=== PATIENT | male | born 1965 | race Caucasian/White ===

== ENCOUNTER 2017-07-14 10:23 | Observation (INO) ==
--- NOTE | 2017-07-14 10:31 | Emergency Department Note ---
Disposition Clinical Impression: ACS (acute coronary syndrome) Disposition: Admitted As Inpatient Condition: Fair General Adult HPI - General Chief complaint: ED Nausea/Vomiting/Diarrhea Stated complaint: Chest Pain Time Seen by Provider: 07/14/17 10:28 Source: patient Mode of arrival: ambulatory Limitations: no limitations Nursing Notes Reviewed: Yes Vital Signs Reviewed: Yes - History of Present Illness HPI Narrative: 51-year-old male with a history of ACS status post stent as well as hypertension presents for evaluation of nausea vomiting chest pain. Patient states symptom onset was this morning. Patient noted some left-sided retrosternal chest pain with numbness of his left hand. Patient subsequently had several bouts of nonbloody nonbilious emesis. Patient denies any dyspnea. Denies any fevers. No cough. States his was recently sick with the flu. Patient notes some lower abdominal discomfort. No aggravating or alleviating symptoms related the pain. Pain Scale: 5 - Related Data Home Medications Medication Instructions Recorded Confirmed Albuterol Sulfate [Proair Hfa] 2 puff IH Q4H PRN 08/27/15 07/14/17 Aspirin 81 mg PO DAILY 08/27/15 07/14/17 Docusate [Colace] 100 mg PO DAILY 08/27/15 07/14/17 Fluticasone Propionate Nasal 1 spr NS DAILY 08/27/15 07/14/17 [Flonase] Loratadine [Claritin] 10 mg PO DAILY 08/27/15 07/14/17 Acetaminophen with Codeine 1 tab PO QID PRN 07/14/17 07/14/17 [Acetaminophen-Cod #3 Tablet] Icosapent Ethyl [Vascepa] 1 cap PO QID 07/14/17 07/14/17 Rosuvastatin Calcium [Rosuvastatin 20 mg PO DAILY 07/14/17 07/14/17 Calcium] diazePAM [Valium] 5 mg PO BID 07/14/17 07/14/17 traZODone [TraZODone] 50 mg PO HS 07/14/17 07/14/17 Previous Rx's Medication Instructions Recorded Isosorbide MONOnitrate (24 HR) 30 mg PO DAILY #30 tab.er.24h 08/28/15 [Imdur] Metoprolol XL (24 HR) Succ [Toprol 25 mg PO DAILY #30 tab.er.24h 08/28/15 Xl] Nitroglycerin 0.4 mg SL Q5MIN PRN #30 tab.subl 08/28/15 Acetaminophen [Tylenol] 650 mg PO Q6HR PRN #40 tablet MDD 10/30/15 3250 Allergies Allergy/AdvReac Type Severity Reaction Status Date / Time nicotine [From Nicoderm CQ] AdvReac Itching Verified 10/10/15 21:52 Penicillins AdvReac killed Verified 10/10/15 21:52 good bacteria Varenicline [From Chantix] AdvReac had all Verified 10/10/15 21:52 side effects of the medicine All systems ED: reviewed and negative except as stated. Constitutional: Reports: as per HPI. Denies: fever Eyes: Reports: as per HPI ENT ED: Reports: as per HPI Cardiovascular: Reports: as per HPI, chest pain Respiratory: Reports: as per HPI. Denies: cough, dyspnea, sputum production Gastrointestinal: Reports: as per HPI, abdominal pain, nausea, vomiting Genitourinary: Reports: as per HPI Musculoskeletal: Reports: as per HPI Integumentary: Reports: as per HPI Neurological: Reports: as per HPI Psychiatric: Reports: as per HPI Past Medical History - Past Medical History Medical history: Reports: arthritis, COPD, coronary artery disease, fibromyalgia , GERD, hyperlipidemia, hypertension, other Psychiatric history: Reports: anxiety, depression - Social History Smoking Status: Current every day smoker Smokeless Tobacco Status: No Alcohol use: Reports: none Drug use: Reports: none Physical Exam - General Limitations: no limitations General appearance: alert, in no apparent distress - Head Head exam: atraumatic, normocephalic, normal inspection - Eye Eye exam: Present: normal appearance, EOMI - ENT ENT exam: normal exam - Neck Neck exam: Present: normal inspection, trachea midline - Chest Chest inspection: Present: normal inspection, symmetric chest wall rise - Respiratory Respiratory exam: Present: normal lung sounds bilaterally. Absent: respiratory distress - Cardiovascular Cardiovascular exam: Present: regular rate, normal rhythm. Absent: systolic murmur - Abdominal Exam Abdominal exam: Present: soft, Non-Tender. Absent: guarding, rebound - Extremities Exam Extremities exam: Present: normal inspection - Expanded Lower Extremity Exam Neurovascular/Tendon exam: Present: normal capillary refill - Back Exam Back exam: Present: normal inspection - Neurological Exam Neurological exam: Present: alert, oriented X3 - Skin Skin exam: Present: warm, dry, intact, normal color Course Vital Signs Temperature 99.2 F 07/14/17 10:25 Pulse Rate 98 07/14/17 10:25 Respiratory Rate 18 07/14/17 10:25 Blood Pressure 133/94 07/14/17 10:25 O2 Sat by Pulse Oximetry 97 07/14/17 10:25 Temperature 99.6 F 07/14/17 15:54 Pulse Rate 104 07/14/17 15:54 Respiratory Rate 16 07/14/17 15:54 Blood Pressure 119/67 07/14/17 15:54 O2 Sat by Pulse Oximetry 96 07/14/17 15:54 Oxygen Delivery Oxygen Delivery Room Air Medical Decision Making - MDM Narrative Medical decision making narrative: 51-year-old male patient for evaluation of chest pain as well as nausea vomiting diaphoresis. Patient states that symptom onset was this morning. Patient had a negative troponin however given the concerning history and patient had no history of recent cardiac evaluation patient would likely need inpatient evaluation with stress testing and repeated troponin. Patient's pain was addressed with aspirin as well as nitroglycerin in the ER. Patient will be admitted for further evaluation. This is less likely a pulmonary embolism given the patient's history and physical exam. - Lab Data Lab results reviewed: Yes I reviewed the patient's lab results. Result diagrams: 07/14/17 10:46 07/14/17 10:46 Lab Results 07/14/17 07/14/17 07/14/17 Range/Units 10:46 10:46 10:46 WBC 13.8 H (4.3-11.1) K/mcL RBC 5.59 H (4.19-5.50) M/mcL Hgb 16.9 (12.9-16.9) g/dL Hct 49.7 (37.5-50.1) % MCV 88.9 (83.0-100.0) fL MCH 30.2 (28.0-33.3) pg MCHC 34.0 (31.6-35.5) g/dL RDW 14.3 (11.5-14.5) % Plt Count 255 (140-400) K/mcL MPV 10.1 (9.4-12.4) fL Immature Gran % 0.3 (0-4) % Seg Neutrophils % 90.9 % Lymphocytes % 2.7 % Monocytes % 5.3 % Eosinophils % 0.5 % Basophils % 0.3 % Neutrophils # 12.6 H (1.6-8.9) K/mcL Lymphocytes # 0.4 L (0.6-4.6) K/mcL Monocytes # 0.7 (0.0-1.3) K/mcL Eosinophils # 0.1 (0.0-0.6) K/mcL Basophils # 0.0 (0.0-0.2) K/mcL Sodium 140 (136-145) mEq/L Potassium 4.7 (3.5-5.1) mEq/L Chloride 108 H (98-107) mEq/L Carbon Dioxide 27 (23-29) mEq/L BUN 19 (6-20) mg/dL Creatinine 1.09 (0.70-1.30) mg/dL Est GFR ( Amer) > 60 (> 60) Est GFR (Non-Af Amer) > 60 (> 60) BUN/Creatinine Ratio 17 (6-26) Glucose 132 H (70-105) mg/dL Calculated Osmolality 294 (280-300) Calcium 9.2 (8.6-10.3) mg/dL Total Bilirubin 0.6 (0.3-1.0) mg/dL AST 36 (13-39) Units/L ALT 18 (7-52) Units/L Alkaline Phosphatase 105 H (34-104) Units/L Troponin I < 0.03 (< 0.04) ng/mL Serum Total Protein 7.8 (6.4-8.9) g/dL Albumin 4.4 (3.5-5.7) g/dL Globulin 3.4 (2.4-3.5) g/dL Albumin/Globulin Ratio 1.3 (1.1-2.2) - Radiology Data Radiology results reviewed: Yes I reviewed the patient's radiology results. Chest X-Ray 07/14/17 10:37 IMPRESSION: No acute findings. D/ / Adeel Burrows / Adeel Burrows Interpreting Provider: Adeel Burrows - EKG Data EKG #1 EKG attestation: Yes I reviewed and interpreted this EKG. EKG shows normal: sinus rhythm Rate: normal Rhythm: NSR [place]/QRS: normal Q waves: III, v1 QRS morphology: poor R-wave progression Interpretation: no acute changes, unchanged when compared to prior tracing (date ) Shorty - Shorty Situation: Demographics Background: Presenting Complaint Assessment: Vital Signs, Course and respsone to treatment Recommendation: Barrier(s) to disposition, Recommendation based on pending studies, treatments, or consults Shorty Report Given to: Dr. Winter Oro Repor Time: 13:07 Attestation Statement - Attestation Attestation: I examined this patient and my medical decision-making was reviewed with the Resident Physician. I agree with the documented findings, disposition and treatment plan as described. Heart Score - Score History: Moderately Suspicious EKG: Non Specific repolarisation Disturbance Age: 45-65 Risk Factors: 1-2 risk factors Troponin: Less than normal limit HEART Score Total: 4
[2017-07-14] MEDS ORDERED: Nitroglycerin 0.4 MG TAB.SUBL SL ONE (10:37)
[2017-07-14] MEDS ORDERED: Aspirin 81 MG TAB.CHEW PO ONE (10:37)
[2017-07-14] MEDS ORDERED: Ondansetron 4 MG/2 ML VIAL IVP ONE (10:39)
[2017-07-14 11:03] LABS: Albumin 4.4 g/dL (3.5-5.7); Bilirubin,Total 0.6 mg/dL (0.3-1.0); Calcium 9.2 mg/dL (8.6-10.3); Carbon Dioxide 27 mEq/L (23-29); Chloride 108 mEq/L (98-107); Potassium 4.7 mEq/L (3.5-5.1); Sodium 140 mEq/L (136-145)
[2017-07-14 11:06] LABS: Basophils % 0.3 %; Eosinophils # 0.1 K/mcL (0.0-0.6); Eosinophils % 0.5 %; Hematocrit 49.7 % (37.5-50.1); Hemoglobin 16.9 g/dL (12.9-16.9); Immature Granulocytes % 0.3 % (0-4); Lymphocytes # 0.4 K/mcL (0.6-4.6); Lymphocytes % 2.7 %; Mean Corpuscular Hemoglobin 30.2 pg (28.0-33.3); Mean Corpuscular Volume 88.9 fL (83.0-100.0); Mean Platelet Volume 10.1 fL (9.4-12.4); Monocytes # 0.7 K/mcL (0.0-1.3); Monocytes % 5.3 %; Neutrophils # 12.6 K/mcL (1.6-8.9); Platelet Count 255 K/mcL (140-400); Red Blood Count 5.59 M/mcL (4.19-5.50); Red Cell Distribution Width 14.3 % (11.5-14.5); Segmented Neutrophils % 90.9 %
[2017-07-14 11:09] LABS: Alanine Aminotransferase 18 Units/L (7-52); Albumin/Globulin Ratio 1.3 (1.1-2.2); Alkaline Phosphatase 105 Units/L (34-104); Aspartate Amino Transferase 36 Units/L (13-39); BUN/Creatinine Ratio 17 (6-26); Blood Urea Nitrogen 19 mg/dL (6-20); Globulin 3.4 g/dL (2.4-3.5); Glucose 132 mg/dL (70-105); Osmolality,Calculated 294 (280-300); Total Protein 7.8 g/dL (6.4-8.9); eGFR For African Americans > 60 (> 60); eGFR For Non-African Americans > 60 (> 60)
[2017-07-14] MEDS ORDERED: Acetaminophen 325 MG TABLET PO PRN (13:44)
[2017-07-14] MEDS ORDERED: Naloxone 0.4 MG/ML INJ IVP PRN (13:44)
[2017-07-14] MEDS ORDERED: Ondansetron 4 MG/2 ML VIAL IVP PRN (13:44)
[2017-07-14] MEDS ORDERED: Ipratropium/Albuterol Neb 3 ML IH PRN (13:47)
--- NOTE | 2017-07-14 13:52 | Internal Med History&Physical ---
Date of Encounter: 07/14/17 Time of Encounter: 13:49 Assessment and Plan (1) Chest pain Current visit: Yes Status: Acute Chest pain with history of CAD and stent Continue aspirin, metoprolol, nitroglycerin as needed, morphine as needed, statin Telemetry, troponins Order stress test and an echocardiogram, consider cardiology consult if abnormal findings Omeprazole for GI prophylaxis and Lovenox for DVT prophylaxis. Patient will be admitted for observation. Full code. Time spent on this admission 40 minutes Qualifiers: Chest pain type: precordial pain Qualified Code(s): R07.2 - Precordial pain (2) Hyperglycemia Current visit: Yes Status: Acute Check hemoglobin A1c in the morning (3) GERD (gastroesophageal reflux disease) Current visit: Yes Status: Acute Omeprazole Qualifiers: Esophagitis presence: without esophagitis Qualified Code(s): K21.9 - Gastro -esophageal reflux disease without esophagitis (4) CAD (coronary artery disease) Current visit: No Status: Acute Qualifiers: Coronary Disease-Associated Artery/Lesion type: [place] artery [place] vs. transplanted heart: [place] heart Associated angina: without angina Qualified Code(s): I25.10 - Atherosclerotic heart disease of [place] coronary artery without angina pectoris (5) Tobacco abuse Current visit: No Status: Chronic Smoking cessation counseling (6) COPD (chronic obstructive pulmonary disease) Current visit: Yes Status: Acute No exacerbation Qualifiers: COPD type: unspecified COPD Qualified Code(s): J44.9 - Chronic obstructive pulmonary disease, unspecified Internal Medicine - H&P: HPI Chief complaint: Chest pain Admitted From: Emergency Dept History of present illness: Mr. Issa is a 51 year old male with a past medical history of CAD status post a drug-eluting stent in the 1 back in August 2015, hypertension, COPD not oxygen dependent, tobacco use, came to the emergency room complaining of retrosternal pain that started at 5:30 in the morning accompanied by several bouts of vomiting. The patient felt very weak and vomited about 5 times, chest discomfort was mainly on the left side 6 out of 10 in intensity that improved with nitroglycerin. White blood cell count is 13.8 glucose 132 temperature 99.2 , he described some chills. His had flu symptoms recently. Chest x-ray is unremarkable. The patient has been complaining also of a heartburn. Denies any diarrhea, no dysuria. Still complains of chest discomfort Past Med Surg Social Fam HX - Past Medical History Medical history: arthritis, COPD (Not oxygen dependent), coronary artery disease (Status post stents with a drug-eluting stent in the OM #1 on August 2015 , fibromyalgia, depression, tobacco use), fibromyalgia, GERD, hyperlipidemia, hypertension, other Psychiatric history: anxiety, depression - Past Surgical History Surgical History: no surgical history (Cardiac catheterization, last echocardiogram from July 2015 shows an ejection fraction of 60% with mild diastolic dysfunction) - Social History Smoking Status: Current every day smoker Packs per day: One pack per day Smokeless Tobacco Status: No Alcohol use: none Drug use: none - Family History Father Adopted: No Family Member Ethnicity: Non- Living Status: Still Living Hx Family Cardiac Disorders: No Hx Family Respiratory Disorders: Yes (spot on lung) Hx Family Cancer: (unknown) Hx Family GI Disorders: Yes Hx Family Endocrine Disorder: Yes (DM) Hx Family Neuromuscular Disorders: No Hx Family Neurologic Disorders: No Hx Family HEENT Disorders: No Hx Family Autoimmune Disorders: No - Additional Family History Additional family history: Father with a myocardial infarction in his 60s, also CABG Internal Medicine - H&P: Meds Albuterol Sulfate [Proair Hfa] 2 puff IH Q4H PRN 08/27/15 [History] Aspirin 81 mg PO DAILY 08/27/15 [History] Docusate [Colace] 100 mg PO DAILY 08/27/15 [History] Fluticasone Propionate Nasal [Flonase] 1 spr NS DAILY 08/27/15 [History] Loratadine [Claritin] 10 mg PO DAILY 08/27/15 [History] Isosorbide MONOnitrate (24 HR) [Imdur] 30 mg PO DAILY #30 tab.er.24h 08/28/15 [ Rx] Metoprolol XL (24 HR) Succ [Toprol Xl] 25 mg PO DAILY #30 tab.er.24h 08/28/15 [ Rx] Nitroglycerin 0.4 mg SL Q5MIN PRN #30 tab.subl 08/28/15 [Rx] Acetaminophen [Tylenol] 650 mg PO Q6HR PRN #40 tablet MDD 3250 10/30/15 [Rx] Acetaminophen with Codeine [Acetaminophen-Cod #3 Tablet] 1 tab PO QID PRN [History] Icosapent Ethyl [Vascepa] 1 cap PO QID 07/14/17 [History] Rosuvastatin Calcium [Rosuvastatin Calcium] 20 mg PO DAILY 07/14/17 [History] diazePAM [Valium] 5 mg PO BID 07/14/17 [History] traZODone [TraZODone] 50 mg PO HS 07/14/17 [History] 3 Allergy/AdvReac Type Severity Reaction Status Date / Time nicotine [From Nicoderm CQ] AdvReac Itching Verified 10/10/15 21:52 Penicillins AdvReac killed Verified 10/10/15 21:52 good bacteria Varenicline [From Chantix] AdvReac had all Verified 10/10/15 21:52 side effects of the medicine All Systems PM: A 10-system review of systems was performed and is negative for pertinent findings except as documented above in the HPI. Review of systems: Intermittent chest discomfort and nausea, other systems out of the 10 reviewed were negative - Constitutional Vitals: Temp Pulse Resp BP Pulse Ox 99.2 F 100 12 100/54 95 07/14/17 10:25 07/14/17 13:30 07/14/17 13:30 07/14/17 13:30 07/14/17 13:30 - Head Head exam: Present: atraumatic, normocephalic - Eye Eye exam: Present: PERRL, conjuntiva pink, sclera anicteric Pupils: Present: PERRL - Neck Neck exam general surgery: Present: supple, trachea midline. Absent: lymphadenopathy - Respiratory Respiratory exam: Present: CTAB. Absent: accessory muscle use, rales, rhonchi, wheezes - Cardiovascular Cardiovascular exam: Present: RRR, +S1, +S2. Absent: diastolic murmur, gallop, rubs, systolic murmur - GI/Abdominal GI/Abdominal exam: Present: normal bowel sounds, soft, no peritoneal signs. Absent: distended, tenderness - Extremities Exam Extremities exam: Present: warm, radial pulses palpable and symmetrical. Absent : calf tenderness, cyanotic, pedal edema - Neurological Exam Neurological exam: Present: CN II-XII intact, oriented X3, no focal deficits. Absent: pronater drift, facial droop, speech deficit - Skin Skin exam: Present: dry, intact Internal Med - H&P Results - Labs CBC & Chem 7: 07/14/17 10:46 07/14/17 10:46
[2017-07-14] MEDS: Nitroglycerin 0.4 MG TAB.SUBL SL PRN ×2 (14:21→15:36)
[2017-07-14] MEDS: Isosorbide MONOnitrate (24 HR) 30 MG TAB.ER.24H PO SCH (14:22)
[2017-07-14] MEDS: Aspirin Enteric Coated 325 MG Tablet PO SCH (14:22)
[2017-07-14] MEDS: *HR* Enoxaparin 40 MG/0.4 ML SYRINGE SQ SCH (14:22)
[2017-07-14] MEDS: *HR* OxyCODONE Immed Rel 5 MG TABLET PO PRN ×2 (14:26→20:52)
[2017-07-14] MEDS: 0.9 % Sodium Chloride 1,000 ML IVC SCH (14:28)
[2017-07-14] MEDS: diazePAM 5 MG TABLET PO SCH ×2 (20:51→20:52)
[2017-07-14] MEDS ORDERED: Famotidine 20 MG TABLET PO PRN (21:26)
[2017-07-15 00:43] LABS: Adenovirus Not Detected (Not Detect); Bordetella Pertussis Not Detected (Not Detect); Chlamydophila pneumoniae Not Detected (Not Detect); Coronavirus 229E Not Detected (Not Detect); Coronavirus HKU1 Not Detected (Not Detect); Coronavirus NL63 Not Detected (Not Detect); Coronavirus OC43 Not Detected (Not Detect); Human Metapneumovirus Not Detected (Not Detect); Human Rhinovirus/Enterovirus Not Detected (Not Detect); Influenza A Subtype 2009 H1 Not Detected (Not Detect); Influenza A Untypeable Not Detected (Not Detect); Influenza B Not Detected (Not Detect); Mycoplasma pneumoniae Not Detected (Not Detect); Parainfluenza Virus 1 Not Detected (Not Detect); Parainfluenza Virus 2 Not Detected (Not Detect); Parainfluenza Virus 3 Not Detected (Not Detect); Parainfluenza Virus 4 Not Detected (Not Detect); Respiratory Syncytial Virus Not Detected (Not Detect)
[2017-07-15] MEDS: 0.9 % Sodium Chloride 1,000 ML IVC SCH (04:46)
[2017-07-15] MEDS: *HR* Enoxaparin 40 MG/0.4 ML SYRINGE SQ SCH (05:13)
[2017-07-15 05:16] LABS: Mean Corpuscular HGB Conc 34.1 g/dL (31.6-35.5); Mean Corpuscular Volume 87.8 fL (83.0-100.0); Mean Platelet Volume 10.3 fL (9.4-12.4); Platelet Count 177 K/mcL (140-400); Red Blood Count 4.44 M/mcL (4.19-5.50); Red Cell Distribution Width 14.3 % (11.5-14.5)
[2017-07-15 05:22] LABS: Hemoglobin A1C 5.3 %
[2017-07-15 05:28] LABS: BUN/Creatinine Ratio 18 (6-26); Blood Urea Nitrogen 21 mg/dL (6-20); Calcium 7.7 mg/dL (8.6-10.3); Carbon Dioxide 24 mEq/L (23-29); Chloride 107 mEq/L (98-107); Chol/HDL Ratio 5.9 (0-4.9); Cholesterol 101 mg/dL (< 200); Glucose 101 mg/dL (70-105); HDL Cholesterol 17 mg/dL (40-59); Osmolality,Calculated 283 (280-300); Potassium 3.6 mEq/L (3.5-5.1); Sodium 135 mEq/L (136-145); Triglycerides 180 mg/dL (< 150); eGFR For African Americans > 60 (> 60); eGFR For Non-African Americans > 60 (> 60)
[2017-07-15 05:29] LABS: LDL Cholesterol,Calculated 48 mg/dL (0-99)
[2017-07-15 05:30] LABS: Hemoglobin 13.3 g/dL (12.9-16.9)
--- NOTE | 2017-07-15 08:37 | Internal Med Progress Note ---
<Bri Zhu - Last Filed: 07/15/17 14:15> Date of Encounter: 07/15/17 Time of Encounter: 08:35 - Assessment and plan (1) Chest pain Current Visit: Yes Status: Acute Assessment and plan: Consider gastroenteritis vs acs Patient PMH one stent placed August 2015 presented with retrosternal chest pain that will come up from sleep at 5 in the morning. His chest pain that radiates from his next to his left arm. He reported that it was sharp in nature and did not take anything for the pain to make it better. His Staff Radiologist is Dr. Benton. He was nauseous and had about 6 non-bloody vomiting. He thought it may have been due to the pasta sauce that he had that night for dinner. He reported that he currently feels weak, SOB, body aches, and a headache. He no longer has nausea or abdominal pain. He denied NSAID use. EKG showed NSR with no ST wave changes troponin <.03 CXR show no acute cardiopulmonary process ECHO: LVEF 60%, indeterminate diastolic function, no valvular dysfunction and no pulmonary hypertension. respiratory infections panel negative plan Stress test tomorrow. Echocardiogram pending continue home medications asa, Imdur, topolol, Crestor Qualifiers: Chest pain type: precordial pain Qualified Code(s): R07.2 - Precordial pain (2) COPD (chronic obstructive pulmonary disease) Current Visit: Yes Status: Acute Assessment and plan: History of COPD using proair. 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 Benton continue home medications Qualifiers: Coronary Disease-Associated Artery/Lesion type: [place] artery [place] vs. transplanted heart: [place] heart Associated angina: without angina Qualified Code(s): I25.10 - Atherosclerotic heart disease of [place] coronary artery without angina pectoris (4) Hyperglycemia Current Visit: Yes Status: Acute Assessment and plan: Resolved. glucose is stable Hyperglycemia at admission glucose was 132 continue to monitor (5) GERD (gastroesophageal reflux disease) Current Visit: Yes Status: Acute Assessment and plan: History of Gerd continue omeprazole Qualifiers: Esophagitis presence: without esophagitis Qualified Code(s): K21.9 - Gastro -esophageal reflux disease without esophagitis (6) Tobacco abuse Current Visit: No Status: Chronic Assessment and plan: History of smoking 1.5 ppd/ 30yrs Who has counseled on smoking cessation. He stayed clear understanding. He denied nicotine patches at this time (7) DVT prophylaxis Current Visit: Yes Status: Acute Assessment and plan: Lovenox sq - Subjective Interval history: He is alert and oriented times 3. He denies chest pain. He admits to body aches, weakness, shortness of breath, headaches. However he stated that he was tested for the flu at this admission and was negative. he reported that he was told his stress test would have to be rescheduled for tomorrow due to having taken a nitroglycerin. He also reported that he had his echocardiogram this morning. - Constitutional Vitals: Temp Pulse Resp BP Pulse Ox 101.6 F H 87 13 98/64 96 07/15/17 07:36 07/15/17 07:36 07/15/17 07:36 07/15/17 07:36 07/15/17 07:36 Exam: Gen.: Vitals noted. No acute distress. AAOx3 HEENT: oropharynx clear, Normocephalic, atraumatic Neck: Supple. No adenopathy. Cardiac: RRR, no murmur, +S1/S2, click Pulmonary: CTA bilaterally, no wheezes, rales or rhonchi, equal chest expansion Abdomen: soft, nontender, Bowel sounds noted, no guarding Extremities: no BLE edema, nontender calf, no cyanosis or clubbing Neuro: A&Ox3, moves all extremities, no focal deficits Psych: Appropriate mood and behavior Internal Medicine: Result - Labs CBC & Chem 7: 07/15/17 04:38 07/15/17 04:38 Labs: Short CBC 07/15/17 Range/Units 04:38 WBC 6.0 D (4.3-11.1) K/mcL Hgb 13.3 D (12.9-16.9) g/dL Hct 39.0 (37.5-50.1) % Plt Count 177 (140-400) K/mcL BMP 07/15/17 04:38 Sodium 135 L Potassium 3.6 Chloride 107 Carbon Dioxide 24 BUN 21 H Creatinine 1.20 Glucose 101 Calcium 7.7 L Cardiac Enzymes 07/14/17 07/14/17 07/15/17 Range/Units 14:05 19:58 02:56 Troponin I < 0.03 < 0.03 < 0.03 (< 0.04) ng/mL Consult Discharge Plan - Plan Referrals: Heather Kirkland, DIRECTOR INDUSTRIAL NURSING [Primary Care Provider] - 07/21/17 3:30 pm ( ) <Pablo Combs - Last Filed: 07/15/17 14:52> Date of Encounter: 07/15/17 - Constitutional Vitals: Temp Pulse Resp BP Pulse Ox 98.4 F 87 13 98/64 96 07/15/17 14:48 07/15/17 07:36 07/15/17 07:36 07/15/17 07:36 07/15/17 07:36 Internal Medicine: Result - Labs CBC & Chem 7: 07/15/17 04:38 07/15/17 04:38 Labs: Short CBC 07/15/17 Range/Units 04:38 WBC 6.0 D (4.3-11.1) K/mcL Hgb 13.3 D (12.9-16.9) g/dL Hct 39.0 (37.5-50.1) % Plt Count 177 (140-400) K/mcL BMP 07/15/17 04:38 Sodium 135 L Potassium 3.6 Chloride 107 Carbon Dioxide 24 BUN 21 H Creatinine 1.20 Glucose 101 Calcium 7.7 L Cardiac Enzymes 07/14/17 07/15/17 Range/Units 19:58 02:56 Troponin I < 0.03 < 0.03 (< 0.04) ng/mL - Impressions Impressions Echocardiogram 07/14/17 13:44 Impressions: LVEF 60%. Normal LV chamber size, wall thickness and function. Indeterminate diastolic function. No significant valvular dysfunction. No pulmonary hypertension. Left Ventricular Wall Motion: Rest Echo Findings All wall segments showed normal motion. Findings: Study Quality * Technically adequate exam. ECG Findings * Normal sinus rhythm. Left Ventricle * LVEF 60%. * Normal LV chamber size, wall thickness and function. * Indeterminate diastolic function. Right Ventricle * Normal right ventricular structure and function. Left Atrium * Normal left atrial size. Right Atrium * Normal right atrial size. Aortic Valve * No aortic regurgitation. * Trileaflet aortic valve. * No aortic stenosis. Mitral Valve * Normal mitral valve structure. * No mitral regurgitation. * No mitral stenosis. Tricuspid Valve * Tricuspid valve not well visualized. * Trace tricuspid regurgitation. * Estimated RA pressure is 3 mmHg. * Estimated RVSP is 28 mmHg. * No pulmonary hypertension. Pulmonic Valve * Pulmonic valve is not well visualized. * No pulmonic stenosis. * No pulmonic regurgitation. Pulmonary Artery * Pulmonary artery not well visualized. Aorta * Normally sized aortic root. Pericardium * There is no pericardial effusion present. Interatrial Septum * No evidence of PFO by color Doppler. IVC * Normal IVC dimensions and inspiratory collapse. - Attending Attestation I personally interviewed and examined this patient. I agree with the findings, assessment, and plan Dr. Zhu, internal medicine resident. Patient's chest pain is resolved. Based on the story he gives, the associated fever, I am more concerned this is a GI etiology such as an acute gastroenteritis, possibly a food poisoning effect. He is scheduled for a stress test and we will continue with this as planned. Patient will also need tobacco cessation counseling. Patient otherwise is doing well.
--- NOTE | 2017-07-15 08:59 | Electrocardiograph Report ---
[facility] Test Date: 2017-07-14 Pat Name: Pablo Issa Department: 104 Room: 2A48 Gender: M Range Rider: : 1965 Requested By: Mateus Brantley Order Number: [id number] Reading MD: Ranjit Apodaca MD Measurements Intervals [place] Rate: 96 P: 39 [place]: 138 QRS: -16 QRSD: 105 T: 44 QT: 323 QTc: 377 Interpretive Statements SINUS RHYTHM INTERPRETATION BASED ON A DEFAULT AGE OF 40 YEARS Electronically Signed On 07-15-2017 8:58:02 EST by Ranjit Apodaca MD
[2017-07-15] MEDS ORDERED: Aspirin 81 MG TAB.CHEW PO SCH (09:00)
[2017-07-15] MEDS: *HR* OxyCODONE Immed Rel 5 MG TABLET PO PRN ×2 (09:53→18:15)
[2017-07-15] MEDS: Aspirin Enteric Coated 325 MG Tablet PO SCH (09:53)
[2017-07-15] MEDS: diazePAM 5 MG TABLET PO SCH ×2 (09:53→21:33)
[2017-07-15] MEDS: Isosorbide MONOnitrate (24 HR) 30 MG TAB.ER.24H PO SCH (09:54)
[2017-07-15] MEDS: Metoprolol XL (24 HR) Succ 25 MG TAB.ER.24H PO SCH (09:54)
[2017-07-15] MEDS: Fluticasone Propionate Nasal 50 MCG/SPRAY BOTTLE NS SCH (23:40)
[2017-07-16] MEDS: *HR* Enoxaparin 40 MG/0.4 ML SYRINGE SQ SCH (05:55)
[2017-07-16 06:23] LABS: BUN/Creatinine Ratio 13 (6-26); Blood Urea Nitrogen 14 mg/dL (6-20); Calcium 8.2 mg/dL (8.6-10.3); Carbon Dioxide 26 mEq/L (23-29); Chloride 110 mEq/L (98-107); Glucose 102 mg/dL (70-105); Osmolality,Calculated 289 (280-300); Sodium 139 mEq/L (136-145); eGFR For African Americans > 60 (> 60); eGFR For Non-African Americans > 60 (> 60)
[2017-07-16] MEDS ORDERED: Regadenoson 0.4 MG/5 ML SYRINGE IVP ONE (07:23)
[2017-07-16] MEDS: Metoprolol XL (24 HR) Succ 25 MG TAB.ER.24H PO SCH (09:02)
[2017-07-16] MEDS: diazePAM 5 MG TABLET PO SCH ×2 (09:02→21:37)
[2017-07-16] MEDS: Isosorbide MONOnitrate (24 HR) 30 MG TAB.ER.24H PO SCH (09:03)
[2017-07-16] MEDS: Aspirin Enteric Coated 81 MG Tablet PO SCH (09:03)
[2017-07-16] MEDS: Fluticasone Propionate Nasal 50 MCG/SPRAY BOTTLE NS SCH (09:03)
[2017-07-16] MEDS: *HR* OxyCODONE Immed Rel 5 MG TABLET PO PRN ×2 (09:10→18:47)
--- NOTE | 2017-07-16 14:34 | Internal Med Progress Note ---
<Bri Zhu - Last Filed: 07/16/17 14:29> Date of Encounter: 07/16/17 Time of Encounter: 14:30 - Assessment and plan (1) Chest pain Current Visit: Yes Status: Acute Assessment and plan: Consider ACS vs gastroenteritis Patient PMH one stent placed August 2015 presented with retrosternal chest pain that will come up from sleep at 5 in the morning. His chest pain that radiates from his next to his left arm. He reported that it was sharp in nature and did not take anything for the pain to make it better. His Preventive Medicine Specialist is Dr. Benton. He was nauseous and had about 6 non-bloody vomiting. He thought it may have been due to the pasta sauce that he had that night for dinner. He reported that he currently feels weak, SOB, body aches, and a headache. He no longer has nausea or abdominal pain. He denied NSAID use. EKG showed NSR with no ST wave changes troponin <.03 CXR show no acute cardiopulmonary process ECHO: LVEF 60%, indeterminate diastolic function, no valvular dysfunction and no pulmonary hypertension. respiratory infections panel negative *Stress test 07/16/2017 demonstrated mild intensity perfusion defect involving the apical inferior wall during stress representing mild ischemia. No significant change in pharmacological stress EKG from baseline. EF= 60% today the patient denies chest pain, diaphoresis, nausea, vomiting, palpitations plan cardiology consulted on new stress test results and are scheduling the patient for [facility] today continue home medications asa, Imdur, topolol, Crestor Qualifiers: Chest pain type: precordial pain Qualified Code(s): R07.2 - Precordial pain (2) COPD (chronic obstructive pulmonary disease) Current Visit: Yes Status: Acute Assessment and plan: History of COPD using proair. Not an exacerbation stable continue duonebs PRN Qualifiers: COPD type: unspecified COPD Qualified Code(s): J44.9 - Chronic obstructive pulmonary disease, unspecified (3) CAD (coronary artery disease) Current Visit: No Status: Acute Assessment and plan: History of CT with stent placement August 2015 his orthopedic specialist is Dr. Benton continue home medications Qualifiers: Coronary Disease-Associated Artery/Lesion type: [place] artery [place] vs. transplanted heart: [place] heart Associated angina: without angina Qualified Code(s): I25.10 - Atherosclerotic heart disease of [place] coronary artery without angina pectoris (4) Hyperglycemia Current Visit: Yes Status: Acute Assessment and plan: Resolved. glucose is stable Hyperglycemia at admission glucose was 102 continue to monitor (5) GERD (gastroesophageal reflux disease) Current Visit: Yes Status: Acute Assessment and plan: History of Gerd continue omeprazole Qualifiers: Esophagitis presence: without esophagitis Qualified Code(s): K21.9 - Gastro -esophageal reflux disease without esophagitis (6) Tobacco abuse Current Visit: No Status: Chronic Assessment and plan: History of smoking 1.5 ppd/ 30yrs Who has counseled on smoking cessation. He stayed clear understanding. He denied nicotine patches at this time (7) DVT prophylaxis Current Visit: Yes Status: Acute Assessment and plan: Lovenox sq - Subjective Interval history: He is alert and oriented times 3. He denies chest pain, shortness of breath, headaches, palpitations, fever, chills, diaphoresis, nausea, vomiting, diarrhea. He reports that he feels much better today. - Constitutional Vitals: Temp Pulse Resp BP Pulse Ox 98.4 F 69 16 99/60 97 07/16/17 10:36 07/16/17 10:36 07/16/17 10:36 07/16/17 10:36 07/16/17 10:36 Exam: Gen.: Vitals noted. No acute distress. AAOx3 HEENT: oropharynx clear, Normocephalic, atraumatic Neck: Supple. No adenopathy. Cardiac: RRR, no murmur, +S1/S2 Pulmonary: CTA bilaterally, no wheezes, rales or rhonchi, equal chest expansion Abdomen: soft, nontender, Bowel sounds noted, no guarding Extremities: no BLE edema, nontender calf, no cyanosis or clubbing Neuro: A&Ox3, moves all extremities, no focal deficits Psych: Appropriate mood and behavior Internal Medicine: Result - Labs CBC & Chem 7: 07/15/17 04:38 07/16/17 05:34 Labs: BMP 07/16/17 05:34 Sodium 139 Potassium 4.0 Chloride 110 H Carbon Dioxide 26 BUN 14 Creatinine 1.06 Glucose 102 Calcium 8.2 L Consult Discharge Plan - Plan Referrals: Heather Kirkland, [employer] [Primary Care Provider] - 07/21/17 3:30 pm ( ) <Pablo Combs - Last Filed: 07/16/17 17:24> Date of Encounter: 07/16/17 - Constitutional Vitals: Temp Pulse Resp BP Pulse Ox 98.4 F 69 16 99/60 97 07/16/17 10:36 07/16/17 10:36 07/16/17 10:36 07/16/17 10:36 07/16/17 10:36 Internal Medicine: Result - Labs CBC & Chem 7: 07/15/17 04:38 07/16/17 05:34 Labs: BMP 07/16/17 05:34 Sodium 139 Potassium 4.0 Chloride 110 H Carbon Dioxide 26 BUN 14 Creatinine 1.06 Glucose 102 Calcium 8.2 L - Attending Attestation I personally interviewed and examined this patient. I reviewed all labs and studies. I agree with the findings, assessment, and plan of Dr. Zhu, internal medicine resident. Patient's catheter results showed no significant obstructive coronary disease and we will continue medical management. Patient has otherwise improved. Anticipate discharge in the morning if he continues to do well
--- NOTE | 2017-07-16 14:52 | Cardiology Consult Note ---
<Gilles Davidson R - Last Filed: 07/16/17 15:08> Date of Encounter: 07/16/17 Time of Encounter: 14:46 Assessment and Plan (1) Abnormal stress test Status: Acute Stress test showed mild intensity perfusion defect in the apical inferior wall during stress representing mild ischemia. Gated EF 68%. Echo EF 60%, normal wall motion. [facility] 08/27/15 showed severe two vessel coronary artery disease. STRATEGIC MANAGER of distal RCA. Distal vessel fills via L to R collaterals. Patient had successful PTCA/Drug- Eluting Stent placement in the mid OM. Given his symptoms of left sided chest pain with radiation down left arm and neck, n/v, diaphoresis, dyspnea, accompanied by his continued tobacco abuse and mildly abnormal stress test, recommend [facility] to further evaluate. R/B/A discussed. Also discussed option of increasing Imdur/medical management with outpt follow-up. Pt and prefer to stay and undergo [facility]. LHC today. (2) Chest pain Status: Acute As HPI and abnormal stress test as above [facility] today. Qualifiers: Chest pain type: precordial pain Qualified Code(s): R07.2 - Precordial pain (3) CAD (coronary artery disease) Status: Acute [facility] 08/2015 STRATEGIC MANAGER RCA filled via left to right collaterals, successful PTCA/MORGAN to mid OM. Continue ASA, Statin, BB, Imdur. Qualifiers: Coronary Disease-Associated Artery/Lesion type: [place] artery [place] vs. transplanted heart: [place] heart Associated angina: without angina Qualified Code(s): I25.10 - Atherosclerotic heart disease of [place] coronary artery without angina pectoris (4) Tobacco abuse Status: Chronic Smoking cessation counseling given. Discussion w patient/family: The assessment and plan as outlined above was discussed with the patient and/or family members who expressed understanding and agreement. All questions were answered. Thank you for involving us in the care of your patient. Please call with any questions. I will discuss all the above with Dr. Perez and make changes as necessary. History of Present Illness Consult date: 07/16/17 Requesting physician: Pablo Combs Consult reason: Abnormal stress test Chief complaint: Chest pain History of present illness: Mr. Issa is a 51 year old male with PMH of with CAD s/p PCI, tobacco abuse, HTN , COPD that presented to [facility] yesterday after waking up with left sided sharp chest pain radiating down his left arm and neck associated with dyspnea, diaphoresis, nausea and vomiting, relieved with nitro. Troponin negative x 4. No EKG changes. Stress test obtained--mild intensity perfusion defect in the apical inferior wall during stress representing mild ischemia. Gated EF 68%. Echo EF 60%, normal wall motion. Cardiology consulted for abnormal stress test. Pt currently chest pain free. He unfortunately continues to smoke up to 1 1/2 PPD. Prior CV testing: [facility] 08/27/15 severe two vessel coronary artery disease. STRATEGIC MANAGER of distal RCA. Distal vessel fills via L to R collaterals. The left ventricle is normal and has normal contractility EF 60%. Patient had successful PTCA/Drug-Eluting Stent placement in the mid OM. Past Med Surg Social Fam HX - Past Medical History Medical history: arthritis, COPD, coronary artery disease, fibromyalgia, GERD, hyperlipidemia, hypertension, other Psychiatric history: anxiety, depression - Past Surgical History Surgical History: no surgical history - Social History Smoking Status: Current every day smoker Packs per day: One pack per day Smokeless Tobacco Status: No Alcohol use: none Drug use: none - Family History Father Adopted: No Family Member Ethnicity: Non- Living Status: Still Living Hx Family Cardiac Disorders: No Hx Family Respiratory Disorders: Yes (spot on lung) Hx Family Cancer: (unknown) Hx Family GI Disorders: Yes Hx Family Endocrine Disorder: Yes (DM) Hx Family Neuromuscular Disorders: No Hx Family Neurologic Disorders: No Hx Family HEENT Disorders: No Hx Family Autoimmune Disorders: No Medications and Allergies Albuterol Sulfate [Proair Hfa] 2 puff IH Q4H PRN 08/27/15 [History] Aspirin 81 mg PO DAILY 08/27/15 [History] Docusate [Colace] 100 mg PO DAILY 08/27/15 [History] Fluticasone Propionate Nasal [Flonase] 1 spr NS DAILY 08/27/15 [History] Loratadine [Claritin] 10 mg PO DAILY 08/27/15 [History] Isosorbide MONOnitrate (24 HR) [Imdur] 30 mg PO DAILY #30 tab.er.24h 08/28/15 [ Rx] Metoprolol XL (24 HR) Succ [Toprol Xl] 25 mg PO DAILY #30 tab.er.24h 08/28/15 [ Rx] Nitroglycerin 0.4 mg SL Q5MIN PRN #30 tab.subl 08/28/15 [Rx] Acetaminophen [Tylenol] 650 mg PO Q6HR PRN #40 tablet MDD 3250 10/30/15 [Rx] Acetaminophen with Codeine [Acetaminophen-Cod #3 Tablet] 1 tab PO QID PRN [History] Icosapent Ethyl [Vascepa] 1 cap PO QID 07/14/17 [History] Rosuvastatin Calcium [Rosuvastatin Calcium] 20 mg PO DAILY 07/14/17 [History] diazePAM [Valium] 5 mg PO BID 07/14/17 [History] traZODone [TraZODone] 50 mg PO HS 07/14/17 [History] 3 Allergy/AdvReac Type Severity Reaction Status Date / Time nicotine [From Nicoderm CQ] AdvReac Itching Verified 10/10/15 21:52 Penicillins AdvReac killed Verified 10/10/15 21:52 good bacteria Varenicline [From Chantix] AdvReac had all Verified 10/10/15 21:52 side effects of the medicine All Systems Review: A 10-system review of systems was performed and is negative for pertinent findings except as documented above in the HPI. - Cardiovascular Cardiovascular: as per HPI, chest pain at rest, chest pain with exertion, diaphoresis, dyspnea at rest, radiating jaw, neck or arm pain - Respiratory Respiratory: dyspnea - Gastrointestinal Gastrointestinal: nausea Physical Examination Vital Signs Temp Pulse Resp BP Pulse Ox 07/16/17 10:36 98.4 F 69 16 99/60 97 07/16/17 09:15 98 07/16/17 04:26 98.8 F 75 18 110/71 98 07/15/17 23:11 98.1 F 79 18 117/77 100 07/15/17 18:41 97.9 F 74 18 103/65 96 07/15/17 17:07 98.2 F 71 18 109/73 96 Intake and Output 07/15/17 07/16/17 07/16/17 23:59 07:59 15:59 Intake Total 0 / 0 Output Total 0 / 0 Balance 0 / 0 Intake: Oral 0 / 0 Output: Urine 0 / 0 Other: Weight 93.6 kg Blood Glucose* 109 109 Patient Weight 07/16/17 23:59 Weight 93.6 kg General: Conversant, No Apparent Distress HEENT: Atraumatic, Normocephaly, Mucus Membranes Moist Neck: No JVD, Normal carotid pulses Cardiac: Reg Rate and Rhythm, Normal S1 and S2, No Murmur Lungs: Normal Breath Sounds, No Wheeze, Rales, Rhonchi Neuro: Alert and responsive, No focal deficits noted Abdomen: Soft, Non-Tender Skin: No rashes noted on visualized skin Musculoskeletal: No Chest Wall Tenderness Extremities: No Clubbing, No Cyanosis, No Edema, Normal Pulses Results 07/15/17 04:38 07/16/17 05:34 Lab Results 07/16/17 05:34 Sodium 139 Potassium 4.0 Chloride 110 H Carbon Dioxide 26 BUN 14 Creatinine 1.06 Glucose 102 Calcium 8.2 L BMP 07/16/17 Range/Units 05:34 Sodium 139 (136-145) mEq/L Potassium 4.0 (3.5-5.1) mEq/L Chloride 110 H (98-107) mEq/L Carbon Dioxide 26 (23-29) mEq/L BUN 14 (6-20) mg/dL Creatinine 1.06 (0.70-1.30) mg/dL Glucose 102 (70-105) mg/dL Calcium 8.2 L (8.6-10.3) mg/dL Active Medications Acetaminophen (Tylenol) 650 mg PO Q6HR PRN PRN Reason: Mild Pain (1-3) Stop: 01/13/18 13:45 Last Admin: 07/15/17 09:53 Dose: 650 mg Albuterol/Ipratropium (Duoneb) 3 ml IH [id number] PRN; Protocol PRN Reason: Shortness Of Breath/Wheezing Stop: 01/13/18 13:48 Aspirin (Aspirin Ec) 81 mg PO DAILY [facility] Stop: 01/15/18 09:01 Last Admin: 07/16/17 09:03 Dose: 81 mg Diazepam (Valium) 5 mg PO BID [facility] Stop: 01/13/18 21:01 Last Admin: 07/16/17 09:02 Dose: 5 mg Enoxaparin Sodium (Lovenox) 40 mg SQ 0600 MARK PRN Reason: Protocol Stop: 01/13/18 14:01 Last Admin: 07/16/17 05:55 Dose: 40 mg Fluticasone Propionate (Flonase) 50 mcg NS DAILY [facility] PRN Reason: Protocol Stop: 01/14/18 23:16 Last Admin: 07/16/17 09:03 Dose: 50 mcg Isosorbide Mononitrate (Imdur) 30 mg PO DAILY [facility] Stop: 01/13/18 13:46 Last Admin: 07/16/17 09:03 Dose: 30 mg Metoprolol Succinate (Toprol Xl) 25 mg PO DAILY [facility] Stop: 01/14/18 09:01 Last Admin: 07/16/17 09:02 Dose: 25 mg Naloxone HCl (Narcan) 0.4 mg IVP Q2MIN PRN PRN Reason: Opioid Reversal Stop: 01/13/18 13:45 Nitroglycerin (Nitroglycerin) 0.4 mg SL Q5MIN PRN PRN Reason: Chest Pain Stop: 01/13/18 13:41 Last Admin: 07/14/17 15:36 Dose: 0.4 mg Omeprazole (Prilosec) 20 mg PO DAILY@0730 [facility] PRN Reason: Protocol Stop: 01/14/18 09:01 Last Admin: 07/16/17 09:02 Dose: 20 mg Ondansetron HCl (Zofran) 4 mg IVP Q8HR PRN PRN Reason: Nausea And Vomiting Stop: 01/13/18 13:45 Last Admin: 07/14/17 15:37 Dose: 4 mg Oxycodone HCl (Roxicodone) 5 mg PO Q6HR PRN PRN Reason: Moderate Pain (4-6) Stop: 01/13/18 13:45 Last Admin: 07/16/17 09:10 Dose: 5 mg Rosuvastatin Calcium (Crestor) 20 mg PO DAILY [facility] Stop: 01/14/18 09:01 Last Admin: 07/16/17 09:02 Dose: 20 mg - Imaging and Cardiology Stress Test: report reviewed Echo: report reviewed Cardiac cath: report reviewed - EKG Interpretation EKG results cardiology: personally reviewed, other (12 hr tele AVG HR 74, SR, no significant pauses or arrhythmias) Consult Discharge Plan - Plan Instructions: Chest Pain (DC), Chronic Obstructive Pulmonary Disease (DC) Additional Instructions: Please follow up with your PCP and cardiology within 1 week of discharge If develop chest pain or worsening shortness of breath, please return to ED Referrals: [facility] [Provider Group] (cardio will call patient appt.) Heather Kirkland, OPERATIONS SUPERINTENDENT [Primary Care Provider] - 07/21/17 3:30 pm ( ) <Ilan Perez - Last Filed: 07/17/17 21:48> Date of Encounter: 07/16/17 Time of Encounter: 15:00 - Attending Attestation I have personally performed a face to face evaluation on this patient. I have reviewed and agree with the care plan. History and Exam by me shows CC: left sided chest pain Pt presented to [facility] after awakening with left sided sharp chest pain, 8/10 at most severe, associated with shortness of breath and radiation of pain down left arm, lasting approximately twenty minutes, resolved with one sl ntg. He has been pain free since that episode. He underwent stress imaging which reveals perfusion defect in apical inferior wall. PE: reviewed above, agree IMP: 1. Chest pain highly suggestive of anginal equivalent with positive stress imaging for ischemia, recommend LHC/poss, discussed risks and benefits of LHC/ possible with pt and family at bedside, elects to proceed with diagnostic to cath later today. 2. CAD - severe double vessel CAD with previous PCI with MORGAN mid OM1, chronic total occlusion of RCA.: Assessment and Plan Discussion w patient/family: The assessment and plan as outlined above was discussed with the patient and/or family members who expressed understanding and agreement. All questions were answered. Thank you for involving us in the care of your patient. Please call with any questions. History of Present Illness History of present illness: Mr. Issa is a 51 year old male All Systems Review: A 10-system review of systems was performed and is negative for pertinent findings except as documented above in the HPI. Results 07/15/17 04:38 07/16/17 05:34
[2017-07-16] MEDS ORDERED: Verapamil 5 MG/2 ML VIAL ONE (15:08)
[2017-07-16] MEDS ORDERED: 0.9 % Sodium Chloride 1,000 ML ONE ×2 (15:08→15:36)
[2017-07-16] MEDS ORDERED: Nitroglycerin 1,000 MCG/10 ML VIAL IV ONE (15:08)
[2017-07-16] MEDS ORDERED: Heparin 1,000 UNITS/500 mL 500 ML ONE (15:08)
[2017-07-16] MEDS ORDERED: *HR* Heparin 10,000 UNIT/10 ML VIAL ONE (15:08)
[2017-07-16] MEDS ORDERED: *HR* Midazolam HCl 2 MG/2 ML VIAL ONE (15:35)
[2017-07-16] MEDS ORDERED: *HR* FentaNYL (PF) 100 MCG/2 ML VIAL ONE (15:36)
--- NOTE | 2017-07-16 15:50 | Pre-Sedation Evaluation ---
Pre-sedation evaluation - Pre-sedation checklist Date of procedure: 07/16/17 Procedure: [facility] Recent Vitals: Last Vital Signs Temp 98.4 F 07/16/17 10:36 Pulse 69 07/16/17 10:36 Resp 16 07/16/17 10:36 BP 99/60 07/16/17 10:36 Pulse Ox 97 07/16/17 10:36 H&P (including ROS) documented in medical record: Yes Previous reaction to sedatives/anesthetics: No Dietary Status: unknown Dentition: full dentition ASA Classification *see protocol: CLASS II-Mild systemic disease Plan of Care: Pt appropriate candidate for procedure/moderate/conscious sedation , Risks/benefits of procedure/sedation discussed w/ patient/family
--- NOTE | 2017-07-16 16:25 | Event Note ---
Date of Encounter: 07/16/17 Time of Encounter: 16:30 - Cardiology Event Note LHC preliminary No significant change in coronary disease from previous cath. 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 Continue medical management and antianginal therapy with low risk stress test.
--- NOTE | 2017-07-16 16:42 | Invasive Diagnostic Lab Proc ---
Name: Pablo Issa Date of Study: 07/16/2017 Date: 1965 Ht: 66.9in Medical Record#: [id number] Age: 51 Wt: 206.35lb Gender: Male BSA: 2.05 Order #: [id number] BMI: 32.39 Physicians Procedure Physician: Mirza Calvillo MD, [facility] Referring MD: Referring MD: Staff Name Position Time In RianaPat almendarez RN Electrical & Instrumentation Supervisor 03:37 PM Anna Smith RN Monitor 03:37 PM Blaire Martinez RT (R) Scrub 03:37 PM Indications Indication Abnormal Test - Stress Procedures Performed Procedure L HRT ARTERY/VENTRICLE ANGIO Pre-Procedure Checklist Informed consent is complete signed and on chart. H&P is on chart. ID band is on and ID verified with patient. Patient NPO for procedure The procedure was described for the patient and questions were answered. ECG is on chart. Plan of Care Patient will tolerate the procedure without complications. Adequate level of comfort will be maintained. Hemodynamics will remain stable Patient will recover from procedure without complications. Respiratory function will be maintained. Cardiac rhythm will remain stable. Patient temperature will be maintained. Patient and/or family have verbalized understanding of the procedure. Patient Education Intravenous Access Time IV Size Location DC'd Fluid/Drip Rate Units RN 03:27 PM 20g 1 06/24" Patent On Arrival Lt Antecubital 0.9NaCl 25 ml/hr Anna Smith RN Allergies Varenicline Penicillins Varenicline (Chantix) nicotine Vital Signs Time BP (mmHg) HR (bpm) O2 Sat. RR (bpm) LOC 03:28 PM 99 / 60 69 97 % 16 5 = Fully awake and oriented or at pre-proc level 03:43 PM / % 5 = Fully awake and oriented or at pre-proc level 03:43 PM / % 4 = Oriented but drowsy 03:59 PM / % 4 = Oriented but drowsy 03:42 PM 138 / 80 72 100 % 23 03:47 PM 128 / 76 74 99 % 34 03:52 PM 121 / 69 72 99 % 21 03:57 PM 116 / 63 75 98 % 29 04:02 PM 117 / 71 76 97 % 50 04:07 PM 118 / 67 74 97 % 21 04:12 PM 108 / 62 70 97 % 18 04:17 PM 119 / 66 72 97 % 26 04:22 PM 115 / 46 240 97 % 20 Procedural Medications Time Medication Dose Units Method Given By 03:43 PM Oxygen 2 L/min nasal cannula Pat Moore RN 03:45 PM Versed 2 mg Intravenous Pat Moore RN 03:45 PM Fentanyl 50 mcg Intravenous Pat Moore RN 03:54 PM Lidocaine 2% 0.5 ml Subcutaneous Mirza Calvillo MD, [facility] 03:54 PM Heparin 4000 units Nitroglycerin 200 mcg Verapamil 2.5 mg Intraarterial Mirza Calvillo MD, [facility] ASA Classification: CLASS II- Mild systemic disease (i.e. well-controlled diabetes, hypertension, asthma, cigarette smoking) Jules Score Preprocedure Postprocedure Activity 2- Moves 4 extremities sustained head lift Activity 2- Moves 4 extremities sustained head lift Circulation 2- SBP +/= 20 points of pre-anesthetic level Circulation 2- SBP +/= 20 points of pre-anesthetic level Consciousness 2- Awake and alert oriented x 3 Consciousness 2- Awake and alert oriented x 3 O2 Saturation 2- Able to maintain O2 satruation of 92% on room air O2 Saturation 2- Able to maintain O2 satruation of 92% on room air Respiratory 2- Able to deep breathe and cough well Respiratory 2- Able to deep breathe and cough well Total Score 10 Total Score 10 Contrast Agent: Isovue Diagnostic Contrast: 83 ml Total Contrast: 83 ml Fluoro Dose: 544 mGy Procedure Log Time Note Enter By 03:17 PM CathStat 03:37 PM Pt arrived to pharmacy laboratory technician 1 at 15:36 scoates 03:37 PM Pat Moore RN Position: Electrical & Instrumentation Supervisor Time in: 15:37 scoates 03:37 PM Anna Smith RN Position: Monitor Time in: 15:37 scoates 03:37 PM Blaire Martinez (R) Position: Scrub Time in: 15:37 scoates 03:37 PM Patient charges- Angio tray pack, Navilyst 3mm J, Pulse Oximetry and ACIST tubing and transducer scoates 03:37 PM Case Delayed No scoates 03:37 PM Hair removed from procedure site in procedure lab using clippers. Right wrist & rt groin prepped with Chloraprep by Blaire Martinez RT (R), safety strap applied then patient was draped. Skin intact. scoates 03:37 PM Physican paged/called 15:37. scoates 03:37 PM Physican responded and notified patient is ready 15:37 scoates 03:37 PM Physician arrived 15:37 scoates 03:37 PM Meet and greet completed scoates 03:37 PM Sign in performed according to hospital policy. scoates 03:37 PM Procedure start 15:37 scoates 03:37 PM CathStat 03:37 PM Case Start 03:41 PM Vitals capture started with the following parameters, Patient=Adult, Interval=5 min, Initial Ugiwbifg=448 mmHg, Deflation Rate=5 mmHg, Cuff placed on Left Arm 03:42 PM Recorded ECG: HR=72 Condition=Condition 1 03:42 PM HR=72 bpm, DUSW=473/80 mmhg, GvF5=572.0 %, Resp=23 B/min 03:43 PM Time: 15:43 Oxygen on at 2 L/min per nasal cannula by Pat Moore RN scoates 03:43 PM Time: 15:43 Patient comfortable and pain free: Yes scoates 03:43 PM Time: 15:43LOC: 5 = Fully awake and oriented or at pre-proc level scoates 03:45 PM Time: 15:45 Versed 2 mg Intravenous Given by Pat Moore RN scoates 03:45 PM Time: 15:45 Fentanyl 50 mcg Intravenous Given by Pat Moore RN scoates 03:47 PM HR=74 bpm, GGCR=553/76 mmhg, SpO2=99.0 %, Resp=34 B/min 03:52 PM ASA Class CLASS II- Mild systemic disease (i.e. well-controlled diabetes, hypertension, asthma, cigarette smoking) scoates 03:52 PM HR=72 bpm, IPRE=707/69 mmhg, SpO2=99.0 %, Resp=21 B/min 03:53 PM Time out performed according to hospital policy scoates 03:54 PM Time: 15:54 0.5 ml Lidocaine 2% to right radial Subcutaneous Given by Mirza Calvillo MD, [facility] scoates 03:54 PM Access obtained by percutaneous puncture. 6Fr 10cm Terumo Glidesheath sheath placed in right Radial artery. [id number] scoates 03:54 PM Time: 15:54 Patient given 4,000 units Heparin, 200 mcg Nitroglycerin, and 2.5 mg Verapamil Intraarterial by Mirza Calvillo MD, [facility]. This is given to reduce risk of vessel spasm and thrombosis. scoates 03:55 PM 5Fr TIG catheter inserted over the wire [facility] scoates 03:56 PM Wire removed scoates 03:57 PM LCA angiography performed in multiple views. scoates 03:57 PM Recorded Pressure: Ao, HR=78, Condition=Condition 1 (Aorta) Ao 90/67/77 03:57 PM HR=75 bpm, GHDL=475/63 mmhg, SpO2=98.0 %, Resp=29 B/min 03:57 PM Recorded Pressure: Ao, HR=71, Condition=Condition 1 (Aorta) Ao 87/62/72 03:58 PM Time: 15:43 Patient comfortable and pain free: Yes scoates 03:59 PM Time: 15:43LOC: 4 = Oriented but drowsy scoates 03:59 PM Lesion found in Mid LAD. Pre Stenosis: 20 Pre JALEEL Flow: scoates 03:59 PM Lesion found in Distal LAD. Pre Stenosis: 20 Pre JALEEL Flow: scoates 03:59 PM Mid/Distal Left Anterior Descending Coronary Artery and diagonal branches with 20% stenosis. If graft is supplying this area, 0 % stenosis scoates 03:59 PM Wire reinserted. scoates 03:59 PM Catheter removed, intact. scoates 03:59 PM 5Fr 3DRC catheter inserted over the wire [id number] scoates 04:00 PM Lesion found in Mid Circumflex. Pre Stenosis: 20 Pre JALEEL Flow: scoates 04:00 PM Lesion found in 2nd Marginal. Pre Stenosis: 90 Pre JALEEL Flow: scoates 04:00 PM Circumflex, Obtuse Marginal, Left Posterior Descending, and Left Posterolateral Coronary Arteries with 90 % stenosis. If graft is supplying this area, 0 % stenosis scoates 04:02 PM HR=76 bpm, GFXX=258/71 mmhg, SpO2=97.0 %, Resp=50 B/min 04:02 PM Wire reinserted. scoates 04:02 PM Catheter removed. scoates 04:02 PM 5Fr AR1 catheter inserted over the wire [id number] scoates 04:04 PM Pressure channel 1 zero failed. 04:04 PM Pressure channel 1 zeroed. 04:05 PM Wire reinserted and catheter removed, intact. scoates 04:05 PM 5Fr AR2 catheter inserted over the wire [id number] scoates 04:06 PM Wire removed, intact. scoates 04:06 PM RCA angiography performed in multiple views. scoates 04:06 PM Recorded Pressure: Ao, HR=74, Condition=Condition 1 (Aorta) Ao 104/84/95 04:07 PM Recorded Pressure: Ao, HR=74, Condition=Condition 1 (Aorta) Ao 104/81/93 04:07 PM HR=74 bpm, JWFR=742/67 mmhg, SpO2=97.0 %, Resp=21 B/min 04:08 PM Wire reinserted. scoates 04:08 PM Catheter removed scoates 04:10 PM 5Fr Pigtail catheter inserted over the wire [facility] scoates 04:11 PM Catheter removed scoates 04:11 PM Inflation device was opened. scoates 04:12 PM HR=70 bpm, QSTH=774/62 mmhg, SpO2=97.0 %, Resp=18 B/min 04:13 PM 5Fr Angled Pigtail catheter inserted over the wire [id number] scoates 04:14 PM Time: 15:58 Patient comfortable and pain free: Yes scoates 04:14 PM Time: 15:59LOC: 4 = Oriented but drowsy scoates 04:14 PM Catheter selectively placed in left ventricle scoates 04:14 PM Wire removed scoates 04:15 PM Recorded Pressure: LV, HR=73, Condition=Condition 1 (Left Ventricle) LV 112/16/27 04:15 PM Bolus angiogram of left Ventricle complete: 10 ml/sec for a total of 20 mls scoates 04:15 PM Recorded Pressure: LV, Ao, HR=73, Condition=Condition 1 (Left Ventricle) LV 110/25/28, (Aorta) Ao 102/64/82 04:16 PM Wire reinserted and catheter removed, intact. scoates 04:17 PM HR=72 bpm, GUCN=233/66 mmhg, SpO2=97.0 %, Resp=26 B/min 04:19 PM Wire removed, intact. scoates 04:19 PM Procedure completed at 16:19 scoates 04:20 PM Did you address JALEEL flow and Dominance? Yes scoates 04:20 PM Sign out completed: Radiation Dose 544.32 mGy Fluoro Time: 7.7 Isovue 370 - 200ml contrast 83 ml given by Mirza Calvillo MD, [facility]. Complications: NoneCardiac Rehab Consult needed: NoConfirmed administered medications: Yes scoates 04:20 PM Isovue 370 - 200ml,1 Bottle(s) used. scoates 04:20 PM Arterial sheath pulled, Vasc Band closure device used and was Successful S/N. scoates 04:20 PM 10 ml air in Vasc Band. scoates 04:21 PM Estimated Blood Loss: minimal scoates 04:22 PM Post ECG NSR scoates 04:22 PM Post Blood Pressure 119/66 scoates 04:22 PM AL=915 bpm, USSU=276/46 mmhg, SpO2=97.0 %, Resp=20 B/min 04:22 PM 16:22 Post Pulses Bilateral DP & PT 2+ scoates 04:22 PM 16:22 Post Pulses Bilateral radial 2+ scoates 04:23 PM Information taught Cardiac Cath and Vasc Band scoates 04:23 PM Education needs Procedure, Plan of Care, and Responsibilities of Patient in Care scoates 04:23 PM Learning barriers :None scoates 04:23 PM Education Methods Verbal scoates 04:23 PM Education evaluation Able to repeat information scoates 04:23 PM Site status No bleeding/hematoma - Rt Wrist as reported by Blaire Martinez RT (R) at 16:23 scoates 04:24 PM Delay to floor No scoates 04:24 PM Family placed in consult room. scoates 04:27 PM Vitals capture stopped. 04:29 PM Time: 16:14 Patient comfortable and pain free: Yes scoates 04:29 PM Report given to Migdalia WOLFF Pt taken to 2A Room #48. 16:29 scoates 04:29 PM Patient out of room: 16:29 scoates 04:30 PM Lesion found in LMCA. Pre Stenosis: 15 Pre JALEEL Flow: scoates 04:30 PM Left Main Coronary Artery with 15% stenosis scoates 04:30 PM Lesion found in Mid RCA. Pre Stenosis: 90 Pre JALEEL Flow: scoates 04:30 PM Lesion found in Distal RCA. Pre Stenosis: 100 Pre JALEEL Flow: scoates 04:31 PM Right Coronary, Right Posterior Descending Arteries with Right Posterolateral and Acute Marginal branches with 100 % stenosis. If graft is supplying this area, 0 % stenosis scoates Complications Complication None Hemodynamics Pressures Site Systolic/A Wave Diastolic/V Wave Mean AO 90 67 77 AO 87 62 72 AO 104 84 95 AO 104 81 93 LV 112 16 27 LV 110 25 28 AO 102 64 82 Post Procedure Information Blood Pressure: 119/66 mmHg Rhythm: NSR Post procedural instructions were given Closure Device Time Device Success/Fail 07/16/2017 4:31:00 PM Mechanical Compression Successful Site Checks Time Location Status Staff Sheath In? Note 04:23 PM Rt Wrist No bleeding/hematoma Blaire Martinez RT (R) Pulses Time Site Pre-Procedure Post-Procedure Note 07/16/2017 3:28:00 PM Bilateral DP & PT 2+ 07/16/2017 3:28:00 PM Bilateral radial 2+ 4:22:00 PM Bilateral DP & PT 2+ 4:22:00 PM Bilateral radial 2+ Updated by Anna Hutchinson RN on 07/16/2017 4:34:49 PM electronically signed on 07/16/2017 4:35:25 PM with status of Final
[2017-07-16] MEDS: Isosorbide MONOnitrate (24 HR) 60 MG TAB.ER.24H PO SCH (17:03)
[2017-07-17] MEDS: *HR* OxyCODONE Immed Rel 5 MG TABLET PO PRN ×2 (01:11→10:44)
[2017-07-17] MEDS: *HR* Enoxaparin 40 MG/0.4 ML SYRINGE SQ SCH (05:20)
[2017-07-17 07:59] VITALS: BP 101/63
--- NOTE | 2017-07-17 09:31 | Discharge Summary ---
<Demario Llanes - Last Filed: 07/17/17 11:25> Date of Encounter: 07/17/17 Time of Encounter: 09:28 - Discharge Diagnosis (1) Chest pain Priority: Primary Status: Acute Qualifiers: Chest pain type: precordial pain Qualified Code(s): R07.2 - Precordial pain (2) Abnormal stress test Priority: Secondary Status: Acute (3) CAD (coronary artery disease) Priority: Secondary Status: Acute Qualifiers: Coronary Disease-Associated Artery/Lesion type: [place] artery [place] vs. transplanted heart: [place] heart Associated angina: without angina Qualified Code(s): I25.10 - Atherosclerotic heart disease of [place] coronary artery without angina pectoris (4) GERD (gastroesophageal reflux disease) Priority: Secondary Status: Acute Qualifiers: Esophagitis presence: without esophagitis Qualified Code(s): K21.9 - Gastro -esophageal reflux disease without esophagitis (5) Tobacco abuse Priority: Secondary Status: Chronic - Discharge Medications Home Medications: Albuterol Sulfate [Proair Hfa] 2 puff IH Q4H PRN 08/27/15 [History] Aspirin 81 mg PO DAILY 08/27/15 [History] Docusate [Colace] 100 mg PO DAILY 08/27/15 [History] Fluticasone Propionate Nasal [Flonase] 1 spr NS DAILY 08/27/15 [History] Loratadine [Claritin] 10 mg PO DAILY 08/27/15 [History] Isosorbide MONOnitrate (24 HR) [Imdur] 30 mg PO DAILY #30 tab.er.24h 08/28/15 [ Rx] Metoprolol XL (24 HR) Succ [Toprol Xl] 25 mg PO DAILY #30 tab.er.24h 08/28/15 [ Rx] Nitroglycerin 0.4 mg SL Q5MIN PRN #30 tab.subl 08/28/15 [Rx] Acetaminophen [Tylenol] 650 mg PO Q6HR PRN #40 tablet MDD 3250 10/30/15 [Rx] Acetaminophen with Codeine [Acetaminophen-Cod #3 Tablet] 1 tab PO QID PRN [History] Icosapent Ethyl [Vascepa] 1 cap PO QID 07/14/17 [History] Rosuvastatin Calcium [Rosuvastatin Calcium] 20 mg PO DAILY 07/14/17 [History] diazePAM [Valium] 5 mg PO BID 07/14/17 [History] traZODone [TraZODone] 50 mg PO HS 07/14/17 [History] Allergies/Adverse Reactions: 3 Allergy/AdvReac Type Severity Reaction Status Date / Time nicotine [From Nicoderm CQ] AdvReac Itching Verified 10/10/15 21:52 Penicillins AdvReac killed Verified 10/10/15 21:52 good bacteria Varenicline [From Chantix] AdvReac had all Verified 10/10/15 21:52 side effects of the medicine Procedures/tests Complete & Pending: Procedures Performed prior 72 hours Category Date Time Status CL Cardiac Catheterization [CL] Routine Associate Music Professor 07/16/17 15:03 Ordered EV echocardiogram Routine Y 07/14/17 13:44 Completed SP pharm nuclear stress Routine Y 07/16/17 07:15 Completed Date of admission: 07/14/17 13:27 Primary care physician: Heather Kirkland CNP Consults: 07/16/17 14:11 Consult to Cardiology [CONS] Routine Comment: Consulting Provider: [facility] Reason for Consult: stress test result Call Completed: Yes Discharging clinician: Demario Llanes Anticipated date of discharge: 07/17/17 - Patient Status Disposition: Home, Self-Care Condition: Fair Functional capacity at discharge: independent ambulation Overall status at discharge: patient is back to baseline - Discharge Instructions Instructions: Chest Pain (DC), Chronic Obstructive Pulmonary Disease (DC) Follow Up With: [facility] [Provider Group] (cardio will call patient appt.) Heather Kirkland CNP [Primary Care Provider] - 07/21/17 3:30 pm ( ) Additional Instructions: Please follow up with your PCP and cardiology within 1 week of discharge If develop chest pain or worsening shortness of breath, please return to ED - Diet and Activity Activity: increase activity as tolerated Diet: low fat, low cholesterol Hospital course: Mr. Issa is a 51 year old male who presented with chest pain was retrosternal and started at 5:30 in the morning, accompanied by nausea and vomiting. He has history of carotid artery disease with drug-eluting stent to OM last August. Initial troponin, chest x-ray, EKG were unremarkable. His chest pain did improve with nitroglycerin. Echocardiogram revealed EF of 60% with indeterminate diastolic dysfunction. He did get a formal college stress test which revealed mild intensity perfusion defect involving apical inferior wall resulting mild ischemia. Cardiology was consulted afterwards and recommended left heart catheter, which did not reveal any new abnormalities and the stent was patent. Cardiology recommended he continue on his home medications with aspirin, Imdur, Toprol and Crestor. Patient today has no chest pain and his breathing well on room air. He is independently ambulating and has no needs and will be going home. - Time Spent with Patient Total time spent providing and/or coordinating discharge services: Greater than 30 minutes - Constitutional Vitals: Temp Pulse Resp BP Pulse Ox 98.4 F 63 17 101/63 97 07/17/17 07:56 07/17/17 07:56 07/17/17 07:56 07/17/17 07:56 07/17/17 07:56 General appearance: Present: cooperative, pleasant, no acute distress, answers questions appropriately - Head Head exam: Present: atraumatic, normocephalic - Eye Eye exam: Present: PERRL, conjuntiva pink, sclera anicteric - Neck Neck exam general surgery: Present: supple, trachea midline. Absent: lymphadenopathy - Respiratory Respiratory exam: Present: CTAB. Absent: accessory muscle use, rales, rhonchi, wheezes - Cardiovascular Cardiovascular exam: Present: RRR, +S1, +S2. Absent: diastolic murmur, gallop, rubs, systolic murmur - GI/Abdominal GI/Abdominal exam: Present: normal bowel sounds, soft, no peritoneal signs. Absent: distended, tenderness - Extremities Exam Extremities exam: Present: warm, radial pulses palpable and symmetrical. Absent : calf tenderness, cyanotic, pedal edema - Neurological Exam Neurological exam: Present: alert, no focal deficits. Absent: facial droop, speech deficit - Skin Skin exam: Present: dry, intact <Pablo Combs - Last Filed: 07/17/17 14:17> Date of Encounter: 07/17/17 Procedures/tests Complete & Pending: Procedures Performed prior 72 hours Category Date Time Status CL Cardiac Catheterization [CL] Routine Associate Music Professor 07/16/17 15:03 Ordered EV echocardiogram Routine Y 07/14/17 13:44 Completed SP pharm nuclear stress Routine Y 07/16/17 07:15 Completed Date of admission: 07/14/17 13:27 Primary care physician: Heather Kirkland CNP Consults: 07/16/17 14:11 Consult to Cardiology [CONS] Routine Comment: Consulting Provider: [facility] [place] Reason for Consult: stress test result Call Completed: Yes Hospital course: Mr. Issa is a 51 year old male - Time Spent with Patient Total time spent providing and/or coordinating discharge services: - Constitutional Vitals: Temp Pulse Resp BP Pulse Ox 98.4 F 63 17 101/63 97 07/17/17 07:56 07/17/17 07:56 07/17/17 07:56 07/17/17 07:56 07/17/17 07:56 - Attending Attestation I personally interviewed and examined the patient. I agree with the findings, assessment, and plan of Dr. Llanes, internal medicine resident. Unlikely cardiac etiology. This is likely cute gastroenteritis. Patient is doing well and stable for discharge. Follow-up with primary care provider if symptoms recur.
[2017-07-17] MEDS: Isosorbide MONOnitrate (24 HR) 60 MG TAB.ER.24H PO SCH (10:43)
[2017-07-17] MEDS: Aspirin Enteric Coated 81 MG Tablet PO SCH (10:43)
[2017-07-17] MEDS: diazePAM 5 MG TABLET PO SCH (10:44)
[2017-07-17] MEDS: Metoprolol XL (24 HR) Succ 25 MG TAB.ER.24H PO SCH (10:44)
[2017-07-17] MEDS: Fluticasone Propionate Nasal 50 MCG/SPRAY BOTTLE NS SCH (10:45)
== END 2017-07-17 12:01 | disposition home or self-care (01) ==
LOC: 2ANU 10:23 → EMEROO 10:23 → 2ANU 13:53
PROVIDERS: ADMIT Internal Medicine; ATTEND Family Medicine